=== PATIENT | female | born 1990 | race Caucasian/White ===

== ENCOUNTER 2024-03-30 09:27 | Outpatient (CLI) | payer OTHER, SELFPAY ==
[2024-04-01 04:00] LABS: HPV Source Cervical; HPV, High Risk by TMA Not Detected
[2024-04-13 14:31] LABS: Pap Test Reviewed by Path Done
== END 2024-03-30 09:28 | disposition home or self-care (01) ==
PROVIDERS: Visit Provider Obstetrics & Gynecology
DX: E28.2 Polycystic ovarian syndrome (principal); Z83.42 Family history of familial hypercholesterolemia; Z12.4 Encounter for screening for malignant neoplasm of cervix; Z11.3 Encounter for screening for infections with a predominantly sexual mode of transmission; Z13.220 Encounter for screening for lipoid disorders
CPT/HCPCS: 80061; 84146; 84443; 87491; 87591; 87624; 87625; 88141; 88142

== ENCOUNTER 2024-05-08 17:38 | Day surgery (SDC) | payer OTHER, SELFPAY ==
[2024-05-08] VITALS (11 sets, daily range): BP systolic 116–152; BP diastolic 77–101; PULSE 80–112; RESP 16–22; TEMP 36.5–36.7; O2SAT 90–99; BMI 55.2
--- NOTE | 2024-05-08 18:06 | ED_ITS ---
HPI - General Adult General Chief complaint: Ear/Nose/Throat Problem Stated complaint: Possible abscess in throat Time Seen by Provider: 05/08/24 17:51 History of Present Illness HPI narrative: seen at urgent care and sent here, wants to make sure pt does not have abcess. strep and mono negative at urgent care. c /o swollen tonsils and throat pain. sick x 11 days, the tonsils swollen for a week. gave antiimflamamato ry at . 33-year-old woman presenting to the emergency department with concern of sore throat particularly left side. Has been sick about 11 days now. Cold symptoms including rhinorrhea and congestion are no longer present. Seem to initially affect both sides of her throat with pain and the right is improved but the left worsened. Was really bad a few days ago actually is improved a little bit over the last couple of days but due to pressure from nurse friends she presented for evaluation urgent care. With concern of peritonsillar abscess I believe was directed to the emergency department for further evaluation. Able to swallow though painful. No difficulty breathing. Related Data Home Medications ?Medication ?Instructions ?Recorded ?Confirmed No Known Home Medications 05/08/24 05/08/24 Allergies Allergy/AdvReac Type Severity Reaction Status Date / Time No Known Drug Allergies Allergy Verified 05/08/24 19:55 Review of Systems Status of ROS: Reports: 6 or more systems reviewed and unremarkable except as noted in History and below PFSH [facility] Family History (Updated 04/06/24 @ 08:04 by Iraida Cevallos MD) Paternal Grandfather Alcohol dependence Drug dependence High blood pressure Maternal Grandfather Alcohol dependence Cardiovascular disease Drug dependence Diabetes High cholesterol Maternal Grandmother Diabetes High blood pressure Osteoporosis Stroke Thyroid disease Mother Thyroid disease Social History Smoking Status: Never smoker How often do you have a drink containing alcohol: never AUDIT-C Alcohol total score: 0 Non-prescribed substance use: denies use Exam Narrative: Exam Narrative: Pleasant. Breathing easily. Lungs appear clear Clearly with hot potato voice. No stridor. Neck is supple. Little sore to palpation the upper anterior cervical neck. Oropharynx demonstrating marked trismus. Aided with tongue blade on or pharyngeal exam there is swelling of the left greater than right soft palate and effacement into the tonsil. Not able to see easily majority of the tonsil. Heart in regular rate and rhythm. Const: Vital Signs, click to edit/add: Vital Signs - 24 hr 05/08/24 17:58 Temperature 98 F Pulse Rate [Pulse Oximeter] 84 Respiratory Rate 18 Blood Pressure [Ri ght Upper Arm] 123/77 Pulse Oximetry 96 Oxygen Delivery Me thod Room Air Documenting provider has reviewed patient's vital signs: yes Course Vital Signs Vital signs: Initial Vital Signs Temperature 98 F 05/08/24 17:58 Temperature Source Temporal Artery Scan 05/08/24 17:58 Pulse Rate 84 05/08/24 17:58 Respiratory Rate 18 05/08/24 17:58 Blood Pressure 123/77 05/08/24 17:58 Blood Pressure Mean 92 05/08/24 17:58 Blood Pressure Position Sitting 05/08/24 17:58 Pulse Oximetry 96 05/08/24 17:58 Oxygen Delivery Method Room Air 05/08/24 17:58 Vital Signs Temperature 98 F 05/08/24 17:58 Pulse Rate 84 05/08/24 17:58 Respiratory Rate 18 05/08/24 17:58 Blood Pressure 123/77 05/08/24 17:58 Pulse Oximetry 96 05/08/24 17:58 Oxygen Delivery Method Room Air 05/08/24 17:58 Temperature 98 F 05/08/24 17:58 Pulse Rate 84 05/08/24 17:58 Respiratory Rate 18 05/08/24 17:58 Blood Pressure 123/77 05/08/24 17:58 Pulse Oximetry 96 05/08/24 17:58 Oxygen Delivery Method Room Air 05/08/24 17:58 Medications Administered Medications: Discontinued Medications Generic Name Dose Route Start Last Admin Trade Name Freq PRN Reason Stop Dose Admin Sodium Chloride 500 mls @ 1,000 mls/hr 05/08/24 18:12 05/08/24 20:36 0.9 % Sodium Chloride 500 Ml IV 05/08/24 18:41 Infused .Q30M ONE Infusion Medical Decision Making [facility] Narrative Medical decision making narrative: Did review labs done in urgent care. White count is nearly 12,000. Hemoglobin 11.7. Screen negative for mono and strep. I am encouraged that she has been better over couple of days although initial presentation here today is quite convincing for peritonsillar abscess. Will place IV and do soft tissue CT of the neck. Normal saline fluid bolus as well. Does not seem to feel needs medication for pain. Did receive dexamethasone 10 mg IM in Urgent Care. Since then thinks she is feeling better. IV contrasted CT soft tissue neck reviewed by me shows approximately a 3 cm in maximal dimension abscess in the left peritonsillar space. Phlegmonous. Did contact ENT. Shortly after this radiology over-read available. Radiology over-read below TECHNIQUE: CT Neck with i.v. contrast. Coronal and sagittal reformats were obtained. CONTRAST: 150 mL Isovue 370 COMPARISON: None FINDINGS: Skull base: Unremarkable. Portions of the oral cavity and mandible are obscured by streak artifacts from the patient`s dental amalgams. Pharynx: No retropharyngeal fluid collections are identified. No CT evidence of tonsillar or peritonsillar abscess seen. Enlargement of the left palatine tonsils present with a hypodense focus with poorly defined margins measuring 3.3 x 2.2 cm. The epiglottis is normal in appearance. Larynx and airway: Unremarkable. Salivary: Unremarkable. Thyroid: Unremarkable. Vascular: Unremarkable for age. Lymph: Left jugular adenopathy is seen with lymph nodes measuring up to 12 mm. Left submandibular lymph nodes are present measuring up to 8 mm. Bone: No acute fractures or aggressive bone lesions are identified. Disc: The disc spaces are unremarkable in appearance. The facet joints are unremarkable. Soft tissue: The prevertebral soft tissues are unremarkable in appearance. Lung: The visualized lung apices and mediastinum are unremarkable. IMPRESSIONS: 1. Enlargement of the left palatine tonsils present with a hypodense focus with poorly defined margins measuring 3.3 x 2.2 cm. This may represent phlegmonous changes and/or developing tonsillar abscess. 2. Left jugular adenopathy is seen with lymph nodes measuring up to 12 mm. Images reviewed by ENT as well. Anticipating surgical intervention shortly. Dosing with some morphine to facilitate better exam and Unasyn per request. Celsa does feel like she is overall better. Thinks that the dexamethasone has made a difference. Is lying semi recumbent without sensation of difficulty breathing or airway closure at this point. Medical Records Medical records reviewed: Yes I reviewed the patient's medical records Lab Data Lab results reviewed: Yes I reviewed the patient's lab results Labs: Lab Results 05/08/24 Range/Units 18:30 HCG, Qual Negative (Negative) Discharge Plan Discharge Clinical Impression: Peritonsillar abscess, Pharyngitis Prescriptions: No Action No Known Home Medications Follow Up/Referrals: Provider,Not a Local [Primary Care Provider] -
--- NOTE | 2024-05-08 18:12 | CRLHL7_ITS ---
For Patients: As a result of the Century Cures Act, medical imaging exams and procedure reports are released immediately into your electronic medical record. You may view this report before your referring provider. If you have questions, please contact your health care provider. INDICATION: Throat left neck pain and swelling TECHNIQUE: CT Neck with i.v. contrast. Coronal and sagittal reformats were obtained. CONTRAST: 150 mL Isovue 370 COMPARISON: None FINDINGS: Skull base: Unremarkable. Portions of the oral cavity and mandible are obscured by streak artifacts from the patient`s dental amalgams. Pharynx: No retropharyngeal fluid collections are identified. No CT evidence of tonsillar or peritonsillar abscess seen. Enlargement of the left palatine tonsils present with a hypodense focus with poorly defined margins measuring 3.3 x 2.2 cm. The epiglottis is normal in appearance. Larynx and airway: Unremarkable. Salivary: Unremarkable. Thyroid: Unremarkable. Vascular: Unremarkable for age. Lymph: Left jugular adenopathy is seen with lymph nodes measuring up to 12 mm. Left submandibular lymph nodes are present measuring up to 8 mm. Bone: No acute fractures or aggressive bone lesions are identified. Disc: The disc spaces are unremarkable in appearance. The facet joints are unremarkable. Soft tissue: The prevertebral soft tissues are unremarkable in appearance. Lung: The visualized lung apices and mediastinum are unremarkable. IMPRESSIONS: 1. Enlargement of the left palatine tonsils present with a hypodense focus with poorly defined margins measuring 3.3 x 2.2 cm. This may represent phlegmonous changes and/or developing tonsillar abscess. 2. Left jugular adenopathy is seen with lymph nodes measuring up to 12 mm. Dictated by Vidal Dillon MD @ 05/08/2024 8:18:02 PM Please note that all CT scans at this facility use dose modulation, iterative reconstruction, and/or weight-based dosing when appropriate to reduce radiation dose to as low as reasonably achievable. Dictated by: Vidal Dillon MD @ 05/08/2024 20:24:25 (Electronically Signed)
--- NOTE | 2024-05-08 19:17 | PC.NURSE ---
assumed care of patient
[2024-05-08 19:24] LABS: HCG Qualitative Serum* Negative (Negative)
[2024-05-08] MEDS: 0.9 % SODIUM CHLORIDE 500 ML 500 ML 1000 ML IV (19:57)
[2024-05-08] MEDS: AMPICILLIN/SULBACTAM 3 GM in 0.9 % SODIUM CHLORIDE Mini-bag 100 ML IVPB (21:04)
[2024-05-08] MEDS: MORPHINE 4 MG/ML INJ IVP (21:04)
--- NOTE | 2024-05-08 21:41 | W.PM.ENTPROC ---
Procedure Note Date Seen: 05/08/24 Date of procedure: 05/08/24 Pre-op diagnosis: Left peritonsillar abscess Post-op diagnosis: same Procedure: Patient was seen in the emergency room for sore throat. CT scan of the neck revealed a large left peritonsillar abscess. She was advised to undergo an incision and drainage of abscess. Goals, risks and potential complications were discussed with patient. Discussed postoperative recovery. She elected to proceed. Signed consent was obtained. After adequate general oral endotracheal anesthesia, patient was prepped and draped in supine position. Mouth gag was inserted the oropharynx was exposed. Patient had large cryptic exophytic tonsils. She had significant amount of peritonsillar swelling on the left side. Incision was made through the mucosa with the needlepoint cautery in the superior aspect of the anterior pillar. With blunt dissection the abscess cavity was entered and a large amount of gross pus was removed and cultured for general aerobic bacteria and sensitivities. Abscess cavity was irrigated with saline. Patient was observed for approximately 5 minutes without active bleeding. Patient was awakened and extubated in the operating room and returned to the recovery room in stable condition. Estimated blood loss loss was 0. Anesthesia Type: General Surgeon: Esvin Stallworth MD Estimated blood loss (mL): 0 Pathology: none sent Condition: stable
--- NOTE | 2024-05-08 22:56 | P.ANES_ITS ---
Anesthesia Charges Start Date/Time Anesthesia Start Date: 05/08/24 Anesthesia Start Time: 21:52 Stop Date/Time Anesthesia Stop Date: 05/08/24 Anesthesia Stop Time: 22:41 Summary Emergency: [employer]
[2024-05-09] VITALS: BP 148/91; PULSE 97; RESP 18; TEMP 36.6; O2SAT 89
[2024-05-09 00:45] VITALS: BP 141/85; PULSE 95; RESP 18; TEMP 36.8; O2SAT 93
--- NOTE | 2024-05-09 02:12 | PC.NURSE ---
Nurse note: pt denies nausea, dizziness, pain. vss and pain controlled. tolerating oral intake. voiding appropriately. mother- doroteo at bedside; appears caring and supportive. discharge instructions given and reviewed with pt and mother. d/c from unit @0200 ambulating independently.
== END 2024-05-09 02:00 | disposition home or self-care (01) ==
LOC: ED 21:21 → SS 21:40 → MEDSURG 23:31
PROVIDERS: Emergency Provider Family Medicine; Visit Provider Otolaryngology
PROC: 0C9PXZZ Drainage of Tonsils, External Approach (ICD-10-PCS; CPT 42700; principal; 2024-05-08 21:45)
DX: J36 Peritonsillar abscess (principal)
CPT/HCPCS: 42700; 00170; 36415; 70491; 81025; 84703; 87070; 87075; 87077; 87205; 99140; 99284; 99285; J0295; J0330; J1100; J2250; J2270; J2405; J2704; J3010; J7030; Q9967

== ENCOUNTER 2024-12-18 11:35 | Outpatient (CLI) | payer OTHER, SELFPAY ==
[2024-12-18 15:51] LABS: Strep A DNA Probe* NOT DETECTED (Not Detectd)
== END 2024-12-18 11:36 | disposition home or self-care (01) ==
LOC: KYNREF 11:36
PROVIDERS: Visit Provider Nurse Practitioner Family
DX: J02.9 Acute pharyngitis, unspecified (principal)
CPT/HCPCS: 87651